=== PATIENT | male | born 2000 | race Caucasian/White ===

== ENCOUNTER → 2021-05-15 | Outpatient (CLI) | payer BC ==
[~2021-05-15] MED LIST: ACHD5005 PO; AMOX-358 PO; DOCU-143 PO
--- NOTE | 2021-05-15 14:19 | Diagnostic Imaging Report ---
EXAMINATION: Right upper extremity CT from 05/15/2021. TECHNIQUE: Multiple contiguous axial images were obtained through the right upper extremity without the use of intravenous contrast. Sagittal and coronal reformations were then performed. Auto Exposure Controls were utilized during the CT exam to meet ALARA standards for radiation dose reduction. INDICATION: Displaced fracture of the radial head. Question heterotopic ossification along the olecranon fossa. Injury during basketball. COMPARISON: Comparison or correlative radiographs not available. FINDINGS: There is a comminuted fracture of the radial head with mild depression noted. The fracture is intra-articular in nature. There is a linear fracture fragment posterior to the radial head within the joint space. Other tiny adjacent fracture fragments noted. This extends distal and lateral to the olecranon fossa. There are no focal loose bodies within the olecranon fossa itself. There is no significant spurring. More distally along the lateral border of the proximal humerus, a separate linear 2 mm fracture fragment is noted. The remaining osseous structures appear intact. There are no dislocations. There is a moderate joint effusion. The remaining soft tissues appear unremarkable. Small linear osseous fragments are seen along the lateral and medial borders of the distal humerus which appear well corticated and are likely chronic. IMPRESSION: 1. Comminuted intra-articular fracture of the radial head with depression noted. Several loose bodies within the joint as described above with no loose bodies in the olecranon fossa. Dictated by: Dictated on workstation # [id number]
== END ==
LOC: RAD 11:45
PROVIDERS: ATTEND Family Medicine Sports Medicine
DX: S52.121D Displaced fracture of head of right radius, subsequent encounter for closed fracture with routine healing (principal); Y93.67 Activity, basketball
CPT/HCPCS: 73200